=== PATIENT | female | born 1985 | race Caucasian/White ===

== ENCOUNTER 2020-01-05 15:52 | Outpatient (CLI) | payer MEDICAID, SELFPAY ==
--- NOTE | 2020-01-05 | XR_ITS ---
WS: [id number] XR cervical spine min 6V [id number] REASON FOR EXAM: CERVICAL RADICULOPATHY FINDINGS: The joints of [place] are normal. The odontoid process was normal. Oblique views show no foraminal cyst adenosis. The disc spaces and vertebral bodies are normal. Flexion-extension views are normal. XR/XR cervical spine min 6V [id number] IMPRESSION: Cervical spine series
--- NOTE | 2020-01-05 | XR_ITS ---
WS: [id number] XR thoracic spine 3V* [id number] REASON FOR EXAM: THORACIC BACK PAIN FINDINGS: Scoliotic curve convex to the right. The disc spaces and vertebral bodies are normal. The lamina, pedicle, spinous processes are all normal. XR/XR thoracic spine 3V* [id number] IMPRESSION: Negative thoracic spine.
== END 2020-01-05 15:53 | disposition home or self-care (01) ==
LOC: RAD 15:59
PROVIDERS: PCP Nurse Practitioner Family; Visit Provider Nurse Practitioner Family
DX: M54.2 Cervicalgia (principal); M54.12 Radiculopathy, cervical region; M54.6 Pain in thoracic spine; M62.838 Other muscle spasm
CPT/HCPCS: 72052; 72072

== ENCOUNTER 2021-08-20 13:24 | Outpatient (CLI) | payer MEDICAID, SELFPAY ==
[2021-08-20 13:57] LABS: Total Volume 2050 mL; Total Volume Urine 2050 ml; Total Volume, Urine 2050 mL
[2021-08-20 14:20] LABS: Sodium, Urine Result 100 mmol/L; Urine Creatinine 62 mg/dL (28-217)
[2021-08-20 14:26] LABS: Blood Urea Nitrogen 17 mg/dL (6-20); Glomerular Filtration Rate 140.4 mL/min (90-130)
== END 2021-08-20 13:25 | disposition home or self-care (01) ==
LOC: LAB 13:37
PROVIDERS: PCP Nurse Practitioner Family; Visit Provider Internal Medicine Nephrology
DX: R80.9 Proteinuria, unspecified (principal)
CPT/HCPCS: 36415; 82565; 82570; 84300; 84520; 84540

== ENCOUNTER 2021-09-25 13:28 | Outpatient (CLI) | payer MEDICAID, SELFPAY ==
--- NOTE | 2021-09-25 13:36 | US_ITS ---
WS: [id number] RENAL ULTRASOUND HISTORY: PROTEINURIA COMPARISON: None available. TECHNIQUE: 2-D and color Doppler imaging of the kidney submitted. Right kidney: 12.2 cm x 4.5 cm x 6.0 cm. Normal echogenicity with no hydronephrosis or mass. Left kidney: 12.4 cm x 5.1 cm x 7.2 cm. Normal echogenicity with no hydronephrosis or mass. Aorta: Normal. Urinary Bladder: Normal distention. US/US renal BI* [id number] IMPRESSION: Normal renal ultrasound.
== END 2021-09-25 13:29 | disposition home or self-care (01) ==
LOC: RAD 13:30
PROVIDERS: PCP Nurse Practitioner Family; Visit Provider Internal Medicine Nephrology
DX: R80.9 Proteinuria, unspecified (principal)
CPT/HCPCS: 76770

== ENCOUNTER → 2022-09-11 11:15 | Outpatient (BNVA) | payer MEDICAID, SELFPAY | PROVIDERS: PCP Nurse Practitioner Family; Visit Provider Nurse Practitioner Women's Health | DX: Z01.419 Encounter for gynecological examination (general) (routine) without abnormal findings (principal); N92.6 Irregular menstruation, unspecified | CPT/HCPCS: 87491; 87591; 87624; 87661 ==

== ENCOUNTER → 2022-11-27 14:50 | Outpatient (BNVA) | payer MEDICAID, SELFPAY | PROVIDERS: PCP Nurse Practitioner Family; Visit Provider Nurse Practitioner Women's Health | DX: N93.9 Abnormal uterine and vaginal bleeding, unspecified (principal); N85.2 Hypertrophy of uterus | CPT/HCPCS: 76830 ==

== ENCOUNTER → 2023-01-08 16:44 | Outpatient (BNVA) | payer MEDICAID, SELFPAY | PROVIDERS: PCP Nurse Practitioner Family; Visit Provider Obstetrics & Gynecology | DX: N93.9 Abnormal uterine and vaginal bleeding, unspecified (principal) | CPT/HCPCS: 88305 ==